=== PATIENT | female | born 1985 ===

== ENCOUNTER 2022-11-26 07:34 | Emergency (ER) | payer MEDICAID, SELFPAY ==
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
[2022-11-26 07:40] VITALS: BP 138/80; PULSE 88; O2SAT 99
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
[2022-11-26 07:44] VITALS: BP 177/107; PULSE 100; RESP 19; TEMP 36.6; O2SAT 99; BMI 36.7
[2022-11-26] MEDS: Acetaminophen 325 MG TABLET 650 MG PO (08:26)
[2022-11-26] MEDS: Diphth,Pertus(ACell),Tet Adult 0.5 ML SYRINGE IM (08:26)
--- NOTE | 2022-11-26 08:53 | PC.NURSE ---
ct and xrays complete, on arrival w c spine held, pt was changed and assessed, collar in place since arrival, l knee abrasion and swelling noted, alert, speech clear, texting and talking on phone since arrival, ice pack to forehead, medicated as ordered
[2022-11-26 10:29] VITALS: BP 137/74; PULSE 86; RESP 16; TEMP 36.6; O2SAT 98
== END 2022-11-26 13:19 | disposition home or self-care (01) ==
PROVIDERS: Emergency Provider Internal Medicine; PCP Registered Nurse
DX: S00.81XA Abrasion of other part of head, initial encounter (principal); S80.02XA Contusion of left knee, initial encounter; S80.01XA Contusion of right knee, initial encounter; V47.5XXA Car driver injured in collision with fixed or stationary object in traffic accident, initial encounter; Y93.89 Activity, other specified; Y92.414 Local residential or business street as the place of occurrence of the external cause; Y99.9 Unspecified external cause status
CPT/HCPCS: 12011; 70450; 72125; 73560; 90471; 90715; 99283; 99284

== ENCOUNTER 2023-11-16 17:47 | Emergency (ER) | payer MEDICAID, SELFPAY ==
--- NOTE | ~2023-11-16 | XR_ITS ---
EXAMINATION: LEFT ANKLE, LEFT FOOT CLINICAL INFORMATION: Medial pain and discoloration COMPARISON: Left ankle and left foot 07/09/2015 TECHNIQUE: 2 views left ankle, 3 views left foot FINDINGS: There is mild soft tissue swelling laterally as well as medially. No ankle joint effusion is seen. The ankle mortise appears stable. No fractures or any other osseous abnormality is seen. XR/XR foot LT min 3V IMPRESSION: Soft tissue swelling without fracture.
--- NOTE | ~2023-11-16 | XR_ITS ---
EXAMINATION: LEFT ANKLE, LEFT FOOT CLINICAL INFORMATION: Medial pain and discoloration COMPARISON: Left ankle and left foot 07/09/2015 TECHNIQUE: 2 views left ankle, 3 views left foot FINDINGS: There is mild soft tissue swelling laterally as well as medially. No ankle joint effusion is seen. The ankle mortise appears stable. No fractures or any other osseous abnormality is seen. XR/XR ankle LT min 3V IMPRESSION: Soft tissue swelling without fracture.
[2023-11-16 18:03] VITALS: BP 144/76; PULSE 102; RESP 20; TEMP 36.4; O2SAT 100; BMI 34.9
--- NOTE | 2023-11-16 18:03 | ED_ITS ---
HPI - General Adult General Chief complaint: Extremity Injury, Lower Stated complaint: L leg pain, ? infection red and purple Time Seen by Provider: 11/16/23 20:00 Source: patient Mode of arrival: ambulatory Limitations: no limitations History of Present Illness ED Provider: adriana MCWILLIAMS narrative: Patient IVDA opiate user comes here for redness of the medial aspect of the left foot for last 1 week patient does not use drugs in the feet no open wounds the fever no chills no significant swelling no history of MRSA infection Related Data Home Medications ?Medication ?Instructions ?Recorded ?Confirmed nicotine (polacrilex) 2 mg gum 2 mg PO Q8-12H PRN Smoking 02/03/23 02/03/23 Cessation nicotine 14 mg/24 hr daily 1 patch topical DAILY smoking 02/03/23 02/03/23 transdermal patch cession nicotine 21 mg/24 hr daily 1 patch topical DAILY smoking 02/03/23 02/03/23 transdermal patch cession Previous Rx's ?Medication ?Instructions ?Recorded cephalexin 500 mg capsule 500 mg PO QID 10 days #40 caps 11/16/23 doxycycline hyclate 100 mg tablet 100 mg PO BID #20 tabs 11/16/23 Allergies Allergy/AdvReac Type Severity Reaction Status Date / Time Seasonal Allergies Allergy Watery Eye Verified 11/16/23 18:06 Review of Systems 2 Review of Systems: Yes all other systems are reviewed and are negative PMFSH Past Medical History Medical History Smoker Depression Anxiety Social History Social History Patient Tobacco Use Status: Current everyday Tobacco user Tobacco use type: Cigarette Cigarettes Per Day: 5 Years Smoked: 30 Advance Directives: No Advance Directives Information Provided: No Do you have a plan to hurt others: No Plan Physical Exam ED Vital Signs: Vital Signs - 24 hr 11/16/23 18:03 11/16/23 19:56 11/17/23 00:03 Temperature 97.6 F 98.2 F 97.9 F Pulse Rate 102 H 96 91 Respiratory Rate 20 20 16 Blood Pressure 144/76 H 143/74 H 151/91 H Pulse Oximetry 100 99 99 Oxygen Delivery Method Room Air Room Air Room Air Oxygen Flow Rate 11/17/23 00:18 Temperature 97.9 F Pulse Rate 91 Respiratory Rate 14 Blood Pressure 151/1 H Pulse Oximetry Oxygen Delivery Method Oxygen Flow Rate 99 BMI result Body Mass Index 34.9 Appearance: Alert. Oriented X3. No acute distress. Eyes: PERRLA, No Nystagmus ENT: Pharynx normal. Oral Mucosa moist Neck: Normal inspection. Neck supple. CVS: Normal heart rate and rhythm. Pulses normal. Respiratory: No respiratory distress. Equal air entry bilateral, Abdomen: Soft and nontender. Bowel sounds are present, Skin: Skin warm and dry. Normal skin color. Normal skin turgor. Extremities: No lower extremity edema. No calf tenderness IVDA track antoine on the upper extremities, slight redness local warmth to left medial aspect of the left foot no open wound no sign of IVDA Neuro: Oriented X 3. Course Course Course Narrative: This is a rapid medical exam performed by Tosin Durant NP: Additional HPI, ROS, PE not included below will be deferred to primary provider. Patient is a 38-year-old female presenting to the ED with erythema and pain to left medial ankle for the past 6 days. She arrives in walking boot but denies any injury/fracture. States the boot helps her to ambulate. Denies fevers. Plan: labs, xray Medications Administered Discontinued Medications Generic Name Dose Route Start Last Admin Trade Name Freq PRN Reason Stop Dose Admin Cephalexin HCl 500 mg 11/16/23 23:41 11/17/23 00:02 Cephalexin 500 Mg Capsule PO 11/16/23 23:42 500 mg ONCE ONE Administration Doxycycline Monohydrate 100 mg 11/16/23 23:41 11/17/23 00:02 Doxycycline Monohydrate 100 Mg Capsule PO 11/16/23 23:42 100 mg ONCE ONE Administration Medical Decision Making Medical Decision Making [facility] Narrative: Patient with mild cellulitis of left ankle/foot will give doxycycline and cephalexin x-ray of the left ankle and foot negative Lab Data [facility] Lab Attestation statement: I reviewed the patient's lab results. 11/16/23 19:13 11/16/23 19:13 Labs: Lab Results 11/16/23 Range/Units 19:13 WBC 9.0 (4.8-10.8) X10*3/uL RBC 3.15 L (4.20-5.50) X10*6/uL Hgb 9.1 L (12.0-16.0) g/dl Hct 27.4 L (37.0-47.0) % MCV 87.0 (80.0-98.0) fL MCH 28.9 (27.0-33.0) pg MCHC 33.2 (31.0-35.0) g/dl RDW 13.7 (11.0-16.0) % Plt Count 288 (160-400) X10*3/uL MPV 10.4 (9.4-12.3) fL Immature Gran % (Auto) 0.3 (0.0-0.4) % Neut % (Auto) 66.3 (45-73) % Lymph % (Auto) 24.0 (20-40) % Duchesne % (Auto) 7.5 (2-11) % Eos % (Auto) 1.6 (0-4) % Baso % (Auto) 0.3 (0-2) % Lymph # (Auto) 2.2 (1.2-4.9) X10*3/uL Duchesne # (Auto) 0.7 (0.1-1.2) X10*3/uL Eos # (Auto) 0.1 (0.0-0.4) X10*3/uL Baso # (Auto) 0.0 (0.0-0.2) X10*3/uL Abs Immat Gran (auto) 0.03 (0.00-0.03) X10*3/uL Absolute Neuts (auto) 5.9 (2.0-8.3) x10*3/uL Absolute Nucleated RBC 0.000 (0.0-0.012) X10*3/uL Nucleated RBC % (auto) 0.0 (0.0-0.2) /100WBC PT 13.0 (11.1-13.3) SEC INR 1.1 (0.9-1.1) Sodium 140 (135-145) mmol/L Potassium 3.9 (3.3-5.1) mmol/L Chloride 107 (96-108) mmol/L Carbon Dioxide 24 (22-29) mmol/L Anion Gap 13 (12-20) BUN 10 (9-16) mg/dL Creatinine 0.78 (0.5-1.4) mg/dL Estim Creat Clear Calc 110.5 Estimated GFR > 60 Random Glucose 101 (60-115) mg/dL Calcium 9.5 (8.4-10.2) mg/dL Total Bilirubin 0.3 (0.0-1.0) mg/dL AST 17 (5-31) U/L ALT 18 (0-31) U/L Alkaline Phosphatase 66 (39-117) U/L Total Protein 7.5 (6.5-8.0) g/dL Albumin 3.9 (3.5-5.0) g/dL Independent Interpretation I performed an independent interpretation of an: Plain X-Ray Radiology Impression Discussion of test interpretation with radiology: I have reviewed the radiologist's reading. Discharge Plan Discharge Clinical Impression: Cellulitis Patient Disposition: Home, Self-Care Instructions: Cellulitis (ED) Additional Instructions: Take antibiotic as prescribed Keep left foot elevated Report to the ER if worsening of the redness or pain Prescriptions: New cephalexin 500 mg capsule 500 mg PO QID 10 Days Qty: 40 0RF doxycycline hyclate 100 mg tablet 100 mg PO BID Qty: 20 0RF No Action nicotine 14 mg/24 hr patch 24 hour 1 patch topical DAILY nicotine (polacrilex) 2 mg gum 2 mg PO Q8-12H PRN (Reason: Smoking Cessation) nicotine 21 mg/24 hr patch 24 hour 1 patch topical DAILY Interventions: ED Discharge Assessment Last Done: 11/17/23 00:18 Discharge Date/Time: 11/17/23 00:19 Print Language: Turkmen
--- NOTE | 2023-11-16 19:09 | MHC.EDTECH ---
Prior lab draw attempt at 18:25
[2023-11-16 19:18] LABS: MANUAL DIFF FLAG NO
[2023-11-16 19:22] LABS: Basophils Percent Auto 0.3 % (0-2); Eosinophils Absolute Auto 0.1 X10*3/uL (0.0-0.4); Eosinophils Percent Auto 1.6 % (0-4); Hematocrit 27.4 % (37.0-47.0); Hemoglobin 9.1 g/dl (12.0-16.0); Imm Gran Abs Auto 0.03 X10*3/uL (0.00-0.03); Imm Gran Pct Auto 0.3 % (0.0-0.4); Lymphocytes Absolute Auto 2.2 X10*3/uL (1.2-4.9); Mean Corpuscular HGB Conc 33.2 g/dl (31.0-35.0); Mean Corpuscular Hemoglobin 28.9 pg (27.0-33.0); Mean Platelet Volume 10.4 fL (9.4-12.3); Monocytes Absolute Auto 0.7 X10*3/uL (0.1-1.2); Monocytes Percent Auto 7.5 % (2-11); Neutrophils Absolute Auto 5.9 x10*3/uL (2.0-8.3); Neutrophils Percent Auto 66.3 % (45-73); Platelet Count 288 X10*3/uL (160-400); Red Blood Count 3.15 X10*6/uL (4.20-5.50); Red Cell Distribution Width 13.7 % (11.0-16.0)
[2023-11-16 19:27] LABS: INTERNATIONAL NORM RATIO 1.1 (0.9-1.1)
[2023-11-16 19:32] LABS: Alanine Aminotransferase 18 U/L (0-31); Albumin Level 3.9 g/dL (3.5-5.0); Alkaline Phosphatase 66 U/L (39-117); Anion Gap 13 (12-20); Aspartate Amino Transferase 17 U/L (5-31); Bilirubin Total 0.3 mg/dL (0.0-1.0); Blood Urea Nitrogen 10 mg/dL (9-16); Calcium 9.5 mg/dL (8.4-10.2); Carbon Dioxide 24 mmol/L (22-29); Chloride 107 mmol/L (96-108); Creatinine Clr Calc Pharmacy 110.5; Estimated Glomerular Filt Rate > 60; Glucose Random 101 mg/dL (60-115); Potassium 3.9 mmol/L (3.3-5.1); Sodium 140 mmol/L (135-145); Total Protein 7.5 g/dL (6.5-8.0)
[2023-11-16 19:56] VITALS: BP 143/74; PULSE 96; RESP 20; TEMP 36.8; O2SAT 99
[2023-11-17] MEDS: Doxycycline Monohydrate 100 MG CAPSULE PO (00:02)
[2023-11-17] MEDS: cephALEXin 500 MG CAPSULE PO (00:02)
[2023-11-17 00:03] VITALS: BP 151/91; PULSE 91; RESP 16; TEMP 36.6; O2SAT 99
[2023-11-17 00:18] VITALS: BP 151/1; PULSE 91; RESP 14; TEMP 36.6
== END 2023-11-17 00:19 | disposition home or self-care (01) ==
PROVIDERS: Registered Nurse Emergency; Emergency Provider Internal Medicine; PCP Registered Nurse
DX: L03.116 Cellulitis of left lower limb (principal); Z86.14 Personal history of Methicillin resistant Staphylococcus aureus infection
CPT/HCPCS: 36415; 73610; 73630; 80053; 85025; 85610; 99282; 99283